=== PATIENT | female | born 2000 ===

== ENCOUNTER → 2024-07-26 13:16 | Outpatient (REF) | payer OTHER, SELFPAY ==
[2024-07-26 14:30] LABS: Hematocrit 39.9 % (37.0-47.0); Hemoglobin 13.8 g/dL (12.0-16.0); Mean Corp Hgb Conc. 34.6 g/dL (33.0-37.0); Mean Corpuscular Hgb 31.2 pg (27.0-31.0); Mean Corpuscular Volume 90.1 fL (81.0-99.0); Mean Platelet Volume 10.4 fL (7.4-10.4); Platelet Count 265 10^3/uL (130-400); Red Blood Cell Count 4.43 10^6/uL (4.20-5.40); Red Cell Dist. Width 12.1 % (11.5-14.5); White Blood Cell Count 6.7 10^3/uL (4.8-10.8)
[2024-07-26 15:14] LABS: Direct Bilirubin 0.3 mg/dl (0.0-0.4); Iron 140 ug/dl (37-170)
[2024-07-26 15:24] LABS: Percent Saturation 40 % (20-50); Total Iron Binding Capacity 345 ug/dl (265-497)
[2024-07-26 15:42] LABS: Cortisol, Random 9.7 ug/dl; TSH 0.65 uIU/ml (0.47-4.68)
[2024-07-26 15:46] LABS: Ferritin 11.4 ng/ml (6.24-137)
[2024-07-26 17:04] LABS: Absolute Neutrophils -Man Diff 4.4 10^3/uL (1.4-6.5); Atypical Lymphocytes 1 %; Band Neutrophils 0 % (0-3); Eosinophils 2 % (0-6); Lymphocytes 26 % (20-51); Monocytes 4 % (2-9); Normal RBC Morphology Yes; Platelets Checked Yes; Segmented Neutrophils 67 % (42-75)
[2024-07-26 17:05] LABS: Total Cells Counted 100
[2024-07-29 02:33] LABS: Thyroglobulin Antibodies <1.5 IU/mL (0.0-4.0); Thyroid Peroxidase Ab (TPO) <0.3 IU/mL (0.0-9.0)
[2024-07-29 09:17] LABS: Haptoglobin 79 mg/dL (30-200)
== END ==
LOC: REG 13:16
PROVIDERS: ATTENDING PHYSICIAN Internal Medicine Cardiovascular Disease; FAMILY PHYSICIAN Internal Medicine
DX: R00.2 Palpitations (principal); R42 Dizziness and giddiness; I95.9 Hypotension, unspecified; R55 Syncope and collapse; E83.19 Other disorders of iron metabolism
CPT/HCPCS: 36415; 82248; 82533; 82728; 83010; 83540; 83550; 84443; 85027; 86376; 86800

== ENCOUNTER → 2024-08-29 15:03 | Outpatient (REF) | payer OTHER, SELFPAY | LOC: RCS 15:03 | PROVIDERS: ATTENDING PHYSICIAN Internal Medicine Cardiovascular Disease; FAMILY PHYSICIAN Internal Medicine | DX: R00.2 Palpitations (principal); R42 Dizziness and giddiness; I95.9 Hypotension, unspecified | CPT/HCPCS: 93306 ==